=== PATIENT | female | born 1955 | race Caucasian/White ===

== ENCOUNTER 2017-03-19 19:46 | Emergency (ER) | payer OTHER ==
[~2017-03-19] VITALS: Ht 165.1 cm; Wt 70.3 kg
[~2017-03-19 19:46] MED LIST: AMLO10TA2 PO; AMOX-427 PO; HYDR-3326 GT
[2017-03-19 20:00] VITALS: BP 142/79
--- NOTE | 2017-03-19 23:00 | NUR ---
CAMDEN GARRETT AT BEDSIDE.
[2017-03-19] MEDS ORDERED: KETOROLAC TROMETHAMINE INJ 30 MG/ML VIAL ONE (23:24)
--- NOTE | 2017-03-19 23:27 | NUR ---
pt medicated as ordered.
--- NOTE | 2017-03-19 23:28 | NUR ---
CALLED PERSONNEL ASSISTANT FOR XRAY
[2017-03-19] MEDS ORDERED: KETOROLAC TROMETHAMINE INJ 60 MG/2 ML VIAL IM ONE (23:30)
--- NOTE | 2017-03-19 23:37 | NUR ---
R hand xray done.
== END 2017-03-20 00:04 | disposition home or self-care (01) ==
LOC: ER 19:56
DX: S56.901A Unspecified injury of unspecified muscles, fascia and tendons at forearm level, right arm, initial encounter (principal); I10 Essential (primary) hypertension; M19.90 Unspecified osteoarthritis, unspecified site; X58.XXXA Exposure to other specified factors, initial encounter; Y93.89 Activity, other specified; Y92.89 Other specified places as the place of occurrence of the external cause; Y99.8 Other external cause status
CPT/HCPCS: 29125; 73130; 96372; 99284; A4606; J1885; Z7610

== ENCOUNTER 2017-07-06 00:42 | Emergency (ER) | payer SELFPAY ==
[~2017-07-06] VITALS: Ht 167.6 cm; Wt 81.6 kg
[~2017-07-06 00:42] MED LIST changes: -HYDR-3326 GT; +HYDR-3974 GT
--- NOTE | 2017-07-06 00:56 | NUR ---
BIBSELF PT C/O N/V AND DIARRHEA X 2 HOURS AGO AFTER EATING A BURGER. NO SOB OR PAIN C/O AT THIS MOMENT. A/OX4 VSS NAD ABLE TO MAKE NEEDS KNOWN. FAMILY AT BEDSIDE. WILL CONTINUE TO MONITOR FOR ANY CHANGES DURING THE SHIFT
[2017-07-06] MEDS ORDERED: ONDANSETRON HCL/PF 4 MG/2 ML VIAL IVP ONE (01:00)
[2017-07-06] MEDS ORDERED: IV NS 0.9% 1,000 ML BAG IV ONE (01:00)
[2017-07-06] MEDS ORDERED: ONDANSETRON HCL/PF 4 MG/2 ML VIAL ONE (01:11)
[2017-07-06 01:14] LABS: BASOPHILS % (AUTO) 0.3 % (0.0-2.0); EOSINOPHILS # (AUTO) 0.1 /CMM (0.0-0.7); EOSINOPHILS % (AUTO) 0.7 % (0.0-6.0); HEMATOCRIT 45 % (33-45); HEMOGLOBIN 15.5 g/dL (11.5-14.8); LYMPHOCYTES # (AUTO) 1.9 /CMM (0.8-4.8); LYMPHOCYTES % (AUTO) 15.8 % (20.0-44.0); MEAN CORPUSCULAR HEMOGLOBIN 30 PG (26.0-33.0); MEAN CORPUSCULAR HGB CONC 35 g/dl (31.0-36.0); MEAN CORPUSCULAR VOLUME 86 fL (82-100); MONOCYTES # (AUTO) 0.3 /CMM (0.1-1.30); MONOCYTES % (AUTO) 2.7 % (2.0-12.0); NEUTROPHILS # (AUTO) 9.9 /CMM (1.8-8.9); NEUTROPHILS % (AUTO) 80.5 % (43.0-81.0); PLATELET COUNT (AUTO) 247 /CMM (150-450); RDW COEFFICIENT OF VARIATION 12.9 (11.5-15.0); RED BLOOD CELL COUNT(AUTO) 5.21 MIL/uL (4.0-5.2); WHITE BLOOD COUNT (AUTO) 12.3 K/uL (4.3-11.0)
--- NOTE | 2017-07-06 01:15 | NUR ---
BLOOD SENT TO LAB WITH SHOE STITCHER
[2017-07-06 01:25] LABS: CALCIUM, SERUM 9.2 mg/dL (8.5-10.1); CREATININE 0.7 mg/dL (0.6-1.3); POTASSIUM 3.6 mmol/L (3.5-5.1)
[2017-07-06 01:26] LABS: APPEARANCE,URINE CLEAR (CLEAR); BILIRUBIN,URINE NEGATIVE (NEGATIVE); BLOOD, URINE NEGATIVE Ery/uL (NEGATIVE); COLOR,URINE YELLOW (YELLOW); KETONES,URINE NEGATIVE (NEGATIVE); LEUKOCYTE ESTERASE ,URINE NEGATIVE (NEGATIVE); NITRITE, URINE NEGATIVE (NEGATIVE); PH,URINE 5.5 (5.0-8.0); PROTEIN,URINE TRACE mg/dl (NEGATIVE); UGLUCOSE NEGATIVE (NEGATIVE); UROBILINOGEN,URINE 0.2 EU/dL (0.2)
--- NOTE | 2017-07-06 01:28 | NUR ---
PT STABLE IN ROOM. OCCCASIONAL GRIMACE BUT OTHERWISE SMILING/SPEAKING TO FAMILY. WILL CONTINUE TO MONITOR FRO ANY CHANGES
[2017-07-06 01:30] LABS: ALBUMIN 3.8 g/dL (3.4-5.0); BILIRUBIN,DIRECT 0.1 mg/dL (0.0-0.2); BILIRUBIN,TOTAL 0.4 mg/dL (0.2-1.0); TOTAL PROTEIN, SERUM 8.3 g/dL (6.4-8.2)
[2017-07-06 01:32] LABS: BACTERIA,URINE None seen /HPF (None Seen); RBC,URINE NONE SEEN /HPF (0-2); SQUAMOUS EPITHELIAL CELL,UR Few /HPF (None Seen); WBC,URINE 0-2 /HPF (0-3)
[2017-07-06 02:08] VITALS: BP 129/86
== END 2017-07-06 02:09 | disposition home or self-care (01) ==
LOC: ER 00:48
DX: K52.9 Noninfective gastroenteritis and colitis, unspecified (principal); I10 Essential (primary) hypertension; M19.90 Unspecified osteoarthritis, unspecified site
CPT/HCPCS: 36415; 80048; 80076; 81001; 83690; 85025; 96361; 96374; 99284; A4606; J2405; J7030; Z7610; 81000-TC

== ENCOUNTER 2018-04-29 23:49 | Emergency (ER) | payer SELFPAY ==
[~2018-04-29] VITALS: Ht 167.6 cm; Wt 68.0 kg
[~2018-04-29 23:49] MED LIST changes: -AMLO10TA2 PO; +AMLO10TA6 PO
[2018-04-30] MEDS ORDERED: ACETAMINOPHEN ES 500 MG TABLET PO ONE (01:00)
[2018-04-30] MEDS ORDERED: ASPIRIN 81 MG TAB.CHEW PO ONE (01:00)
--- NOTE | 2018-04-30 01:00 | NUR ---
PT PRESENTED WITH BACK PAIN AND LUMP/BALL IN HER VAGINA. PT OCCITAN SPEAKING ONLY. PT AMBULATED TO ER BED WITH A STEADY GAIT. NAD NOTED.
[2018-04-30 01:16] LABS: BASOPHILS % (AUTO) 0.6 % (0.0-2.0); HEMATOCRIT 44 % (33-45); HEMOGLOBIN 14.8 g/dL (11.5-14.8); LYMPHOCYTES # (AUTO) 2.8 /CMM (0.8-4.8); LYMPHOCYTES % (AUTO) 36.5 % (20.0-44.0); MEAN CORPUSCULAR HGB CONC 34 g/dl (31.0-36.0); MEAN CORPUSCULAR VOLUME 87 fL (82-100); MONOCYTES # (AUTO) 0.7 /CMM (0.1-1.30); MONOCYTES % (AUTO) 8.5 % (2.0-12.0); NEUTROPHILS # (AUTO) 4.1 /CMM (1.8-8.9); NEUTROPHILS % (AUTO) 52.4 % (43.0-81.0); PLATELET COUNT (AUTO) 233 /CMM (150-450); WHITE BLOOD COUNT (AUTO) 7.8 K/uL (4.3-11.0)
[2018-04-30] MEDS ORDERED: ASPIRIN 81 MG TAB.CHEW ONE (01:18)
[2018-04-30] MEDS ORDERED: ACETAMINOPHEN ES 500 MG TABLET ONE (01:18)
[2018-04-30 01:26] LABS: CALCIUM, SERUM 8.9 mg/dL (8.5-10.1); CARBON DIOXIDE 26 mmol/L (21-32); CHLORIDE 107 mmol/L (98-107); CREATININE 0.7 mg/dL (0.6-1.3); GLUCOSE 126 mg/dL (74-106); POTASSIUM 3.7 mmol/L (3.5-5.1); SODIUM SERUM 143 mmol/L (136-145); UREA NITROGEN, BLOOD 21 mg/dL (7-18)
[2018-04-30 01:32] LABS: ALKALINE PHOSPHATASE 98 U/L (46-116); ASPARTATE AMINOTRANSFERASE 12 U/L (15-37); BILIRUBIN,TOTAL 0.2 mg/dL (0.2-1.0)
[2018-04-30 01:33] LABS: ALANINE AMINOTRANSFERASE 35 U/L (12-78); ALBUMIN 3.6 g/dL (3.4-5.0); TOTAL PROTEIN, SERUM 7.6 g/dL (6.4-8.2)
--- NOTE | 2018-04-30 01:35 | NUR ---
PELVIC EXAM DONE BY DR JOINER. Female vehicle dismantler accompanied female patient for PELVIC EXAM. CHRISTIE FRANCE AT THE BEDSIDE FOR EXAM
[2018-04-30 02:46] VITALS: BP 143/81
== END 2018-04-30 02:47 | disposition home or self-care (01) ==
LOC: ER 23:50
DX: M54.6 Pain in thoracic spine (principal); M54.5 Low back pain; I10 Essential (primary) hypertension; M19.90 Unspecified osteoarthritis, unspecified site
CPT/HCPCS: 36415; 71045; 72070; 72110; 80048; 80076; 84484; 85025; 93005; 99284; A4606 ×2; Z7610 ×2

== ENCOUNTER 2018-07-06 16:39 | Emergency (ER) | payer SELFPAY ==
[~2018-07-06] VITALS: Ht 167.6 cm; Wt 81.6 kg
[~2018-07-06 16:39] MED LIST changes: -AMLO10TA6 PO; +AMLO10TA7 PO
--- NOTE | 2018-07-06 16:42 | NUR ---
patient presented to the emergency room, c/o nasal congestion. on room air, breathing evenly and unlabored. connected to the monitor and pulse ox. kept comfrotable. will continue to monitor accordingly.
[2018-07-06 18:43] VITALS: BP 125/88
--- NOTE | 2018-07-06 18:45 | NUR ---
Patient discharged to home in stable condition. Written and verbal after care instructions given. Patient verbalizes understanding of instruction.
== END 2018-07-06 18:44 | disposition home or self-care (01) ==
LOC: ER 16:46
DX: J01.90 Acute sinusitis, unspecified (principal); R09.81 Nasal congestion; I10 Essential (primary) hypertension
CPT/HCPCS: 99283; A4606

== ENCOUNTER 2021-09-22 21:03 | Emergency (ER) | payer MEDICARE, OTHER ==
[~2021-09-22] VITALS: Ht 167.6 cm; Wt 79.4 kg
[~2021-09-22 21:03] MED LIST changes: +AMLO-213 PO; -AMLO10TA7 PO
--- NOTE | 2021-09-22 21:25 | NUR ---
BIBSELF C/O DOUBLE VISION FOR ONE DAY, AND FEELING DIZZY . PT A/OX3. TOLERATING R/A WELL WITH NO SOB. CONNECTED PT TO POX AND MONITOR. SAFETY MEASURES IN PLACE.
[2021-09-22] MEDS ORDERED: MECLIZINE HCL 12.5 MG TABLET PO ONE (22:30)
[2021-09-22] MEDS ORDERED: IV NS 0.9% 500 ML BAG IV ONE (22:30)
--- NOTE | 2021-09-22 22:35 | NUR ---
PT TAKEN TO CT VIA [facility]
[2021-09-22] MEDS ORDERED: MECLIZINE HCL 25 MG TABLET ONE (22:36)
--- NOTE | 2021-09-22 22:48 | NUR ---
PT RETURNED TO ER BED [address]
--- NOTE | 2021-09-22 22:50 | NUR ---
IV LINE ESTABLISHED [id number]
--- NOTE | 2021-09-22 22:56 | NUR ---
BLOOD COLLECTED AND SENT TO LAB
--- NOTE | 2021-09-22 22:56 | NUR ---
EMT @ BEDSIDE FOR EKG
[2021-09-22 23:11] LABS: BASOPHILS # (AUTO) 0.1 K/uL (0.0-0.2); BASOPHILS % (AUTO) 1.3 % (0.0-2.0); EOSINOPHILS % (AUTO) 2.3 % (0.0-6.0); HEMATOCRIT 44 % (33-45); HEMOGLOBIN 14.9 g/dL (11.5-14.8); LYMPHOCYTES % (AUTO) 39.9 % (20.0-44.0); MEAN CORPUSCULAR HGB CONC 34 g/dl (31.0-36.0); MEAN CORPUSCULAR VOLUME 87 fL (82-100); MONOCYTES # (AUTO) 0.6 K/uL (0.1-1.30); MONOCYTES % (AUTO) 7.3 % (2.0-12.0); NEUTROPHILS # (AUTO) 3.7 K/uL (1.8-8.9); NEUTROPHILS % (AUTO) 49.2 % (43.0-81.0); PLATELET COUNT (AUTO) 236 K/uL (150-450); RED BLOOD CELL COUNT(AUTO) 5.04 MIL/uL (4.0-5.2); WHITE BLOOD COUNT (AUTO) 7.6 K/uL (4.3-11.0)
[2021-09-22 23:26] LABS: BILIRUBIN,URINE NEGATIVE (NEGATIVE); COLOR,URINE YELLOW (YELLOW); LEUKOCYTE ESTERASE ,URINE TRACE (NEGATIVE); NITRITE, URINE NEGATIVE (NEGATIVE); PROTEIN,URINE NEGATIVE (NEGATIVE); UGLUCOSE NEGATIVE (NEGATIVE); UROBILINOGEN,URINE 0.2 EU/dL (0.2)
[2021-09-22 23:29] LABS: ALANINE AMINOTRANSFERASE 39 U/L (12-78); ALBUMIN 3.8 g/dL (3.4-5.0); ALKALINE PHOSPHATASE 86 U/L (46-116); ASPARTATE AMINOTRANSFERASE 25 U/L (15-37); BILIRUBIN,TOTAL 0.1 mg/dL (0.2-1.0); CALCIUM, SERUM 8.6 mg/dL (8.5-10.1); CARBON DIOXIDE 26 mmol/L (21-32); CHLORIDE 106 mmol/L (98-107); CREATININE 0.6 mg/dL (0.6-1.3); GLUCOSE 114 mg/dL (74-106); SODIUM SERUM 140 mmol/L (136-145); TOTAL PROTEIN, SERUM 7.8 g/dL (6.4-8.2); UREA NITROGEN, BLOOD 14 mg/dL (7-18)
[2021-09-23] MEDS ORDERED: MECLIZINE HCL 12.5 MG TABLET PO ONE
[2021-09-23] MEDS ORDERED: MECLIZINE HCL 25 MG TABLET ONE (00:12)
--- NOTE | 2021-09-23 01:16 | NUR ---
CARDIOPULMONARY TECHNICIAN AT PT'S BEDSIDE
--- NOTE | 2021-09-23 02:09 | NUR ---
Patient discharged to home in stable condition. Written and verbal after care instructions given. Patient verbalizes understanding of instruction.
--- NOTE | 2021-09-23 02:09 | NUR ---
IV removed. Catheter intact and site benign. Pressure and 4x4 applied to site. No bleeding noted.
[2021-09-23 02:19] VITALS: BP 130/86
[2021-09-23 09:00] LABS: BACTERIA,URINE None seen /HPF (None Seen); RBC,URINE NONE SEEN /HPF (0-2); SQUAMOUS EPITHELIAL CELL,UR Few /HPF (None Seen)
== END 2021-09-23 02:20 | disposition home or self-care (01) ==
LOC: ER 21:18
DX: R42 Dizziness and giddiness (principal); I10 Essential (primary) hypertension; M19.90 Unspecified osteoarthritis, unspecified site; Z79.899 Other long term (current) drug therapy
CPT/HCPCS: 36415 ×2; 70450; 71045; 80048; 80076; 81001; 82962; 84484 ×2; 85025; 85730; 87077; 87086; 93005; 99284; J7040; J8597 ×2

== ENCOUNTER 2023-09-11 19:03 | Emergency (ER) | payer MEDICARE, OTHER ==
[~2023-09-11] VITALS: Ht 162.6 cm; Wt 81.6 kg
[2023-09-11 22:10] VITALS: TEMP 98.1
[2023-09-11] MEDS ORDERED: CARB-174 EACH EAR (22:28)
[2023-09-11] MEDS ORDERED: PRED20TA PO (22:28)
[2023-09-11] MEDS ORDERED: CIPR7.5D9 EACH EAR (22:28)
[2023-09-11 22:39] VITALS: BP 131/81; O2SAT 98
== END 2023-09-11 22:40 | disposition home or self-care (01) ==
LOC: ER 19:09
DX: H61.22 Impacted cerumen, left ear (principal); H69.82 Other specified disorders of Eustachian tube, left ear; M19.90 Unspecified osteoarthritis, unspecified site; I10 Essential (primary) hypertension; Z86.79 Personal history of other diseases of the circulatory system